=== PATIENT | female | born 1985 | race Caucasian/White ===

== ENCOUNTER 2020-06-30 11:15 | Emergency (ER) | payer MEDICAID ==
[~2020-06-30] VITALS: Ht 154.9 cm; Wt 61.4 kg
[~2020-06-30 11:15] MED LIST: DSS100 PO; IBUP-2070 PO; PREN-114 PO
[2020-06-30] MEDS ORDERED: SODIUM CHLORIDE 0.9% 1,000 ML IV ONE (11:30)
[2020-06-30 11:46] LABS: BASOPHILS % (AUTO) 0.4 % (0.0-2.0); EOSINOPHILS % (AUTO) 0.2 % (1.0-6.0); HEMATOCRIT 42.5 % (36-46); HEMOGLOBIN 14.4 g/dL (12.0-16.0); LYMPHOCYTES # (AUTO) 0.9 K/uL (1.0-4.8); LYMPHOCYTES % (AUTO) 8.7 % (22.0-44.0); MEAN CORPUSCULAR HEMOGLOBIN 30.6 pg (26.0-34.0); MEAN CORPUSCULAR HGB CONC 33.9 G/dL (31.0-37.0); MEAN CORPUSCULAR VOLUME 90 fL (80-100); MONOCYTES # (AUTO) 0.5 K/uL (0.1-1.0); MONOCYTES % (AUTO) 4.4 % (2.0-9.0); NEUTROPHILS % (AUTO) 86.3 % (40.0-70.0); PLATELET COUNT (AUTO) 191 K/uL (150-450); RED BLOOD CELL COUNT(AUTO) 4.72 MIL/uL (4.00-5.20); RED CELL DISTRIBUTION WIDTH 13.7 % (11.5-14.5)
[2020-06-30 11:51] LABS: ANION GAP 8 mmol/L (8-16); CALCIUM, TOTAL 9.2 mg/dL (8.8-10.5); CARBON DIOXIDE 26 mmol/L (22-29); CHLORIDE 102 mmol/L (98-107); CREATININE 0.88 mg/dL (0.60-1.30); GLOMERULAR FILTR. RATE CALC > 60 mL/min (>60); GLUCOSE,RANDOM 112 mg/dL (70-110); POTASSIUM 3.9 mmol/L (3.5-5.1); SODIUM SERUM 136 mmol/L (136-145); UREA NITROGEN, BLOOD 15 mg/dL (7-18)
[2020-06-30 12:04] LABS: ALANINE AMINOTRANSFERASE 24 U/L (12-78); ALBUMIN 4.3 g/dL (3.4-5.0); ALKALINE PHOSPHATASE 100 U/L (46-116); ASPARTATE AMINOTRANSFERASE 15 U/L (15-37); BILIRUBIN,TOTAL 0.4 mg/dL (0.1-1.0); HCG,QUANTITATIVE < 1 mIU/mL (0-6); LIPASE 112 U/L (73-393); TOTAL PROTEIN, SERUM 8.5 g/dL (6.4-8.2)
[2020-06-30] MEDS ORDERED: DICYCLOMINE HCL 20 MG TABLET PO ONE (13:30)
[2020-06-30 14:45] VITALS: BP 111/66
== END 2020-06-30 15:27 | disposition home or self-care (01) ==
LOC: EMS 11:16
DX: R10.9 Unspecified abdominal pain (principal); R11.2 Nausea with vomiting, unspecified; R19.7 Diarrhea, unspecified
CPT/HCPCS: 36415; 80053; 83690; 84702; 85025; 96360; 99283; J7030

== ENCOUNTER 2022-07-05 13:02 | Emergency (ER) | payer MEDICAID ==
[~2022-07-05] VITALS: Ht 154.9 cm; Wt 68.2 kg
[2022-07-05 14:36] LABS: BASOPHILS % (AUTO) 0.8 % (0.0-2.0); EOSINOPHILS % (AUTO) 1.4 % (1.0-6.0); HEMATOCRIT 38.6 % (36-46); HEMOGLOBIN 13.1 g/dL (12.0-16.0); LYMPHOCYTES # (AUTO) 2.1 K/uL (1.0-4.8); LYMPHOCYTES % (AUTO) 20.1 % (22.0-44.0); MEAN CORPUSCULAR HEMOGLOBIN 29.9 pg (26.0-34.0); MEAN CORPUSCULAR HGB CONC 33.9 G/dL (31.0-37.0); MEAN CORPUSCULAR VOLUME 88 fL (80-100); MONOCYTES # (AUTO) 0.5 K/uL (0.1-1.0); MONOCYTES % (AUTO) 4.9 % (2.0-9.0); NEUTROPHILS # (AUTO) 7.6 K/uL (1.8-7.7); NEUTROPHILS % (AUTO) 72.8 % (40.0-70.0); PLATELET COUNT (AUTO) 186 K/uL (150-450); RED BLOOD CELL COUNT(AUTO) 4.37 MIL/uL (4.00-5.20)
[2022-07-05 14:49] LABS: ANION GAP 5 mmol/L (8-16); CARBON DIOXIDE 30 mmol/L (22-29); CHLORIDE 103 mmol/L (98-107); CREATININE 0.68 mg/dL (0.60-1.30); GLUCOSE,RANDOM 99 mg/dL (70-110); POTASSIUM 3.7 mmol/L (3.5-5.1); SODIUM SERUM 138 mmol/L (136-145); UREA NITROGEN, BLOOD 9 mg/dL (7-18)
[2022-07-05 14:50] LABS: CALCIUM, TOTAL 8.8 mg/dL (8.8-10.5); GLOMERULAR FILTR. RATE CALC > 60 mL/min (>60)
[2022-07-05] MEDS ORDERED: IBUPROFEN 600 MG TABLET PO ONE (16:00)
[2022-07-05 16:32] VITALS: BP 122/77
[2022-07-05] MEDS ORDERED: IBUP-2070 PO (16:34)
== END 2022-07-05 16:38 | disposition home or self-care (01) ==
LOC: EMS 13:03
DX: R07.9 Chest pain, unspecified (principal); F41.9 Anxiety disorder, unspecified
CPT/HCPCS: 71046; 80048; 84484; 84703; 85025; 85379; 93005; 99285; 36415-L1; 36415-TC

== ENCOUNTER 2023-02-24 10:30 | Emergency (ER) | payer MEDICAID ==
[~2023-02-24] VITALS: Ht 152.4 cm; Wt 61.4 kg
[~2023-02-24 10:30] MED LIST changes: -DSS100 PO; +IBUP-1492 PO; -IBUP-2070 PO; -PREN-114 PO
[2023-02-24] MEDS ORDERED: AMOX1TAB15 PO (14:23)
[2023-02-24 14:58] VITALS: BP 130/80
== END 2023-02-24 14:57 | disposition home or self-care (01) ==
LOC: EMS 10:33
DX: L03.211 Cellulitis of face (principal); Z88.2 Allergy status to sulfonamides
CPT/HCPCS: 99283; Z7502

== ENCOUNTER 2024-04-28 11:40 | Emergency (ER) | payer MEDICAID, OTHER ==
[~2024-04-28] VITALS: Ht 160 cm; Wt 65.9 kg
[~2024-04-28 11:40] MED LIST changes: +AMOX1TAB15 PO
[2024-04-28 11:47] VITALS: TEMP 98.1
[2024-04-28] MEDS: FAMOTIDINE 20 MG/2 ML VIAL IVP ONE (12:36)
[2024-04-28] MEDS: SODIUM CHLORIDE 0.9% 1,000 ML IV ONE (12:37)
[2024-04-28 12:41] LABS: BASOPHILS % (AUTO) 1.3 % (0.0-2.0); HEMATOCRIT 38.8 % (36-46); HEMOGLOBIN 12.7 g/dL (12.0-16.0); LYMPHOCYTES # (AUTO) 1.8 K/uL (1.0-4.8); MEAN CORPUSCULAR HEMOGLOBIN 29.7 pg (26.0-34.0); MEAN CORPUSCULAR HGB CONC 32.8 G/dL (31.0-37.0); MEAN CORPUSCULAR VOLUME 91 fL (80-100); MONOCYTES # (AUTO) 0.4 K/uL (0.1-1.0); MONOCYTES % (AUTO) 5.6 % (2.0-9.0); NEUTROPHILS % (AUTO) 63.1 % (40.0-70.0); PLATELET COUNT (AUTO) 215 K/uL (150-450); RED BLOOD CELL COUNT(AUTO) 4.28 MIL/uL (4.00-5.20); RED CELL DISTRIBUTION WIDTH 13.3 % (11.5-14.5); WHITE BLOOD COUNT (AUTO) 6.4 K/uL (4.5-11.0)
[2024-04-28 12:54] LABS: ANION GAP 12 mmol/L (8-16); CALCIUM, TOTAL 9.2 mg/dL (8.8-10.5); CARBON DIOXIDE 23 mmol/L (22-29); CHLORIDE 102 mmol/L (98-107); GLOMERULAR FILTR. RATE CALC > 60 mL/min (>60); GLUCOSE,RANDOM 92 mg/dL (70-110); POTASSIUM 3.6 mmol/L (3.5-5.1); SODIUM SERUM 137 mmol/L (136-145); UREA NITROGEN, BLOOD 8 mg/dL (7-18)
[2024-04-28 13:05] LABS: ALANINE AMINOTRANSFERASE 21 U/L (12-78); ALBUMIN 3.9 g/dL (3.4-5.0); ALKALINE PHOSPHATASE 105 U/L (46-116); ASPARTATE AMINOTRANSFERASE 15 U/L (15-37); BILIRUBIN,TOTAL 0.5 mg/dL (0.1-1.0); HCG,QUANTITATIVE < 1 mIU/mL (0-6); LIPASE 26 U/L (16-77); TOTAL PROTEIN, SERUM 7.8 g/dL (6.4-8.2)
[2024-04-28] MEDS: PB/HYOSCY/ATR/SCOP/LIDO/MAALOX 55 ML BOTTLE PO ONE (13:24)
[2024-04-28] MEDS ORDERED: FAMO20 PO (13:31)
[2024-04-28 13:58] LABS: APPEARANCE,URINE CLEAR (CLEAR); BILIRUBIN,URINE NEGATIVE (NEGATIVE); COLOR,URINE COLORLESS (YELLOW); GLUCOSE, URINE (UA) NEGATIVE (NEGATIVE); KETONES,URINE NEGATIVE (NEGATIVE); LEUKOCYTE ESTERASE ,URINE NEGATIVE (NEGATIVE); NITRATE,URINE NEGATIVE (NEGATIVE); OCCULT BLOOD,URINE TRACE (NEGATIVE); PH,URINE 6.5 (5.0-8.0); PROTEIN,URINE NEGATIVE (NEGATIVE); SPECIFIC GRAVITIY, URINE 1.006 (1.003-1.030); UROBILINOGEN,URINE <=1.0 mg/dL (<=1.0)
[2024-04-28 14:10] LABS: BACTERIA,URINE None Seen /HPF (None Seen); RBC,URINE 0-2 /HPF (0-2); WBC,URINE 0-2 /HPF (0-5)
[2024-04-28 15:05] VITALS: BP 121/67; PULSE 74; RESP 18
== END 2024-04-28 15:23 | disposition home or self-care (01) ==
LOC: EMS 11:40
DX: R10.13 Epigastric pain (principal); K29.70 Gastritis, unspecified, without bleeding; Z88.2 Allergy status to sulfonamides
CPT/HCPCS: 99285; 96374; 76705; 96361; 80053; 81001; 83690; 84702; 85025; 36415; J3490; J7030

== ENCOUNTER 2024-10-24 10:55 | Emergency (ER) | payer OTHER ==
[~2024-10-24] VITALS: Ht 154.9 cm; Wt 59.0 kg
[~2024-10-24 10:55] MED LIST changes: -AMOX1TAB15 PO; +FAMO20 PO; -IBUP-1492 PO
[2024-10-24] MEDS: LIDOCAINE 5% TRANSDERMAL PATCH TD ONE (13:03)
[2024-10-24] MEDS: KETOROLAC TROMETHAMINE 30 MG/ML VIAL IM ONE (13:03)
[2024-10-24] MEDS: PredniSONE 20 MG TABLET PO ONE (14:45)
[2024-10-24 15:29] VITALS: BP 142/91; PULSE 70; RESP 18; TEMP 97.4; O2SAT 100
[2024-10-24] MEDS ORDERED: IBUP-1492 PO (16:42)
[2024-10-24] MEDS ORDERED: METH-812 PO (16:42)
== END 2024-10-24 17:18 | disposition home or self-care (01) ==
LOC: EMS 10:55
DX: M54.41 Lumbago with sciatica, right side (principal); Z88.2 Allergy status to sulfonamides
CPT/HCPCS: 99283; 72100; 96372; J1885; J7512